=== PATIENT | male | born 1960 | race Caucasian/White ===

== ENCOUNTER 2016-05-01 07:20 | Day surgery (SDC) | payer BC, OTHER ==
[2016-04-27 11:23] VITALS: BMI 31.1
[2016-05-01] MEDS ORDERED: PROPOFOL 20 ML ONE ×2 (07:42)
[2016-05-01 09:02] VITALS: TEMP 97.9
[2016-05-01 09:58] VITALS: BP 114/62; PULSE 66
--- NOTE | 2016-05-02 13:32 | PATH ---
Surgical Pathology Report Patient Name: PHILLY HIGHTOWER [facility]. Rec. #: [id number] /Age/Gender: 1960 (Age: 55) / M Account: [id number] Location: [facility]-ENDOSCOPY Taken: 05/01/2016 Received: 05/01/2016 Reported: 05/02/2016 Physicians: Douglas Escobar M.D. Specimen(s) Received BX CECUM Clinical History History of polyps Polyp Final Diagnosis COLON, CECUM, POLYP, POLYPECTOMY: FRAGMENTS OF TUBULAR ADENOMA. Electronically Signed Tarik Pedersen M.D. Gross Description Received in formalin, labeled "cecum" are 2 murray, polypoid portions of soft tissue measuring 0.3 and 0.6 cm in greatest dimension. The specimens are submitted in toto in one cassette. 05/01/201605/01/2016
== END 2016-05-01 09:40 | disposition home or self-care (01) ==
LOC: FASU-ENDO 07:20
PROVIDERS: ATTEND Internal Medicine Gastroenterology
PROC: 0DBH8ZX Excision of Cecum, Via Natural or Artificial Opening Endoscopic, Diagnostic (ICD-10-PCS; principal; 2016-05-01 08:31)
DX: Z86.010 Personal history of colon polyps (principal); D12.0 Benign neoplasm of cecum; K57.30 Diverticulosis of large intestine without perforation or abscess without bleeding
CPT/HCPCS: 88305-TC

== ENCOUNTER 2018-11-25 07:20 | Day surgery (SDC) | payer BC ==
[2018-11-25] MEDS ORDERED: LIDOCAINE HCL/PF 2% SDV 5ML VIAL ONE (07:48)
[2018-11-25] MEDS ORDERED: PROPOFOL 20 ML ONE ×4 (07:49)
[2018-11-25 07:55] VITALS: TEMP 97.9; BMI 30.2
[2018-11-25 09:20] VITALS: BP 125/84; PULSE 54
== END 2018-11-25 09:23 | disposition home or self-care (01) ==
LOC: FASU-ENDO 07:20 → MERGE 07:20 → FASU-ENDO 09:23
PROVIDERS: ATTEND Internal Medicine Gastroenterology
PROC: 0DJD8ZZ Inspection of Lower Intestinal Tract, Via Natural or Artificial Opening Endoscopic (ICD-10-PCS; principal; 2018-11-25 08:25)
DX: Z86.010 Personal history of colon polyps (principal); K57.30 Diverticulosis of large intestine without perforation or abscess without bleeding